=== PATIENT | female | born 1935 | race Caucasian/White ===

== ENCOUNTER 2022-05-16 10:57 | Outpatient (RCR) | payer MEDICARE, OTHER, SELFPAY ==
[2022-05-16 11:17] VITALS: BP 156/75; PULSE 95; RESP 16; TEMP 36.1; O2SAT 95
== END 2022-11-12 23:59 | disposition home or self-care (01) ==
LOC: CCIC 10:57
PROVIDERS: Visit Provider Internal Medicine
DX: Z45.2 Encounter for adjustment and management of vascular access device (principal)
CPT/HCPCS: 99211